=== PATIENT | male | born 1965 | race Caucasian/White ===

== ENCOUNTER 2017-01-30 14:03 | Emergency (ER) | payer OTHER ==
[~2017-01-30] VITALS: Ht 182.9 cm; Wt 79.5 kg
[~2017-01-30 14:03] MED LIST: CALC-766 PO; CETI10CA PO; GLUC100016 PO; MULT-56 PO
[2017-01-30 14:20] VITALS: PULSE 72; RESP 20; O2SAT 98
[2017-01-30 14:31] VITALS: BP 129/87; PULSE 71; RESP 16; O2SAT 99
--- NOTE | 2017-01-30 14:44 | ED.REPORT ---
HPI-Extremity Problem Lower Date of Service Jan 30, 2017 ED Provider: Brent Noland DO Pt is a 52 year old male presenting to the ED complaining of right knee pain onset just prior to arrival when his dog ran into him from behind and tripped him. He denies any other injury or other symptoms at this time. Nursing Notes Stated Complaint: RT KNEE INJURY/POSS DISLOCATION Chief Complaint: Extremity Trauma Nursing Notes Reviewed: Yes Allergies: Coded Allergies: No Known Allergies (Unverified , 01/30/17) Scheduled Calcium Carbonate (Calcium) 500 Mg Tab.chew 500 MG PO DAILY Cetirizine HCl (Zyrtec) 10 Mg Capsule 10 MG PO HS Glucosamine Sulfate 2Kcl (Glucosamine) 1,000 Mg Tablet 1,000 MG PO DAILY Miscellaneous Medications Multivitamin (Daily Vitamin) 1 Each Tablet 1 EACH PO General Time Seen by MD: 14:43 Chief Complaint Knee injury right Hx Obtained From: Patient Arrived By: Wheelchair Onset Occurred: Just prior to arrival Symptom Duration: Since onset Caused by: Accidental, Fall on ground Location: : Knee right Quality: Painful Severity: Current: Moderate Severity: Maximum: Moderate Recent Healthcare: No recent doctor visit, No recent hospitalization Similar Sx Previous: No Risk-Extremity Prob Lower Well's Criteria for DVT Well's DVT Score: 0 pts (low risk 5%) Past Medical History Past Medical History denies Past Surgical History Eye surgery at 9 years old Smoking History Never Smoker Social History Alcohol Use: "Social" Ambulatory Status Independent Review of Systems Musculoskeletal: Reports: Joint pain, Joint swelling Complete sys rev & neg: except as marked. Respiratory: Denies: Shortness of breath GI: Denies: Vomiting Physical Exam Initial Vital Signs Vital Signs (First) Date Time Temp Pulse Resp B/P Pulse Ox O2 Delivery O2 Flow Rate FiO2 01/30/17 14:31 37.1 71 16 129/87 99 Room Air Initial VS: Reviewed General/Constitutional: Well-developed, Well-nourished Head / Eyes: Atraumatic, Normocephalic, PERRL ENT: Mucous membranes moist, Conjunctiva normal, No scleral icterus Neck: Full range of motion Respiratory: No respiratory distress Abdomen / GI: No distention Skin: Warm, Dry, No cyanosis Neurologic: Alert, Oriented, Nonfocal Psychiatric: Mood/affect normal, Behavior normal, Normal thought content Lower Extremity / Pelvis / MS: Neurologic intact, Vascular intact Extensor mechanism absent. High riding patella. Boggy feeling in joint space of right knee. Palpable 2+ posterior tibial pulse bilaterally, 1+ dorsalis pedis pulses bilaterally Interpretation & Diagnostics Interpretation & Diagnostics: CT ANGIO RIGHT LOWER EXTREMITY: IMPRESSION: 1. No evidence of vascular injury. 2. Suboptimal opacification of the anterior tibial artery and peroneal arteries secondary to contrast bolus timing. Posterior tibial artery is patent distal catheter. Dictated by: Annalise Martin M.D. on 01/30/2017 at 17:01 Lab Results Interpretation Result Diagram: 01/30/17 1530 01/30/17 1530 Test 01/30/17 15:30 White Blood Count 8.4th/mm3 (3.8-10.1) Red Blood Count 4.63mil/mm3 (4.40-5.80) Hemoglobin 14.7g/dL (13.8-17.2) Hematocrit 42.7% (41.0-50.0) Mean Corpuscular Volume 92.2fL (81-100) Mean Corpuscular Hemoglobin 31.7pg (27.0-35.0) Mean Corpuscular Hemoglobin Concent 34.4% (32.0-37.0) Red Cell Distribution Width 12.9% (12.3-15.4) Platelet Count 231bil/L (150-400) Sodium Level 137mEq/L (134-144) Potassium Level 4.3mEq/L (3.5-5.2) Chloride Level 100mEq/L (97-108) Carbon Dioxide Level 24mmol/L (18-29) Blood Urea Nitrogen 12mg/dL (6-24) Creatinine 0.56mg/dL (0.76-1.27) Estimat Glomerular Filtration Rate 162mL/min (>59) Glucose Level 97mg/dL (60-99) Calcium Level 10.0mg/dL (8.5-10.1) X-Ray Interpretation Xray Interpretation: IMPRESSION: No acute fracture. No osseous lesion. If clinical suspicion and/or symptoms persist, further assessment with repeat plainfilms, or advanced imaging (e.g., CT, MRI, or bone scan) may be helpful for further assessment. Dictated by: Annalise Martin M.D. on 01/30/2017 at 15:26 X-Ray Ordered: Knee right Interpretation / Wet Read by: Interpret - Radiologist Re-Eval/Medical Decision Med Decision/Clinical Course Physical exam findings of the right knee are highly suspicious for a patellar tendon rupture, his extensor mechanism is not functional, he has strong palpable bilateral posterior tibial pulses however has diminished dorsalis pedis pulses bilaterally with symmetrically cold extremities and symmetric capillary refill. However, given the injury was severe enough to cause a patellar tendon rupture and suspicion by his spouse and the patient at the malalignment of the knee at the time of injury, there is moderate concern for a complete knee dislocation that was appropriately reduced initially after the incident (the patient's spouse is a physician). For this reason an angiogram of the leg was performed to exclude vascular injury. No noted vascular injury is seen on CAT scan. Patient declines pain medication, knee immobilizer and crutches are given. Patient will follow up with orthopedics. Return and follow-up precautions given. Re-Evaluation/Progress #1: Time of Eval: 14:57 Patient Status: Condition improved Re-Evaluation/Progress Note: Discussed plan for x ray and consultation with ortho. Re-Evaluation/Progress #2: Time of Eval: 15:07 Patient Status: Condition improved Re-Evaluation/Progress Note: The pt's pulse is intact, but the knee may have been fully dislocated. Discussed need for angio of leg. Re-Evaluation/Progress #3: Time of Eval: 17:14 Patient Status: Condition improved Re-Evaluation/Progress Note: Discussed CT results and plan for discharge. Pt understands and agrees. Consultation : Referral / Consult Name: Osmin Guerrero MD Consulted With: Orthopedic Call Returned at: 15:12 Garment Turner: Agrees with plan Note: Get the angio and put the knee in an immobilizer. Counseled Regarding: Diagnosis, Lab results, Need for follow-up, When/why to return to ED Discharge & Departure Impression: Primary Impression: Patellar tendon rupture Encounter type: initial encounter Laterality: right Qualified Code: S86.811A - Strain of other muscle(s) and tendon(s) at lower leg level, right leg , initial encounter Disposition: Home Discharge Condition All VS Reviewed: Yes Condition: Improved Additional Instructions: Your scans today did not show signs of a vascular injury. Use the knee immobilizer and crutches as planned. Take naproxen twice daily. Return to the ER if you develop signs of a vascular injury, such as pain all the way down your leg or other concerns. Follow up with an orthopedic surgeon in the next week. Referrals: Jonathan Bacon MD (PCP) Osmin Guerrero MD Attestation Portions of this note were transcribed by Ame Pastor. I, Dr. Noland personally performed the history, physical exam and medical decision-making; I reviewed and confirmed the accuracy of the information in the transcribed note. Signed by: Anai Merritt, 01/30/2017 at 1726. copies to: Jonathan Bacon MD; Osmin Guerrero MD, Timothy S DO Jan 30, 2017 14:44 AME PASTOR Jan 30, 2017 14:51
--- NOTE | 2017-01-30 15:27 | DRSVH ---
PROCEDURE: X-RAY RIGHT KNEE, THREE VIEWS ([id number]) INDICATIONS: RIGHT KNEE INJURY TECHNIQUE: 3 views of the knee were acquired. COMPARISON: None. FINDINGS: Bones: No fractures or dislocations. No suspicious bony lesions. Soft tissues: No joint effusion. No suspicious soft tissue calcifications. IMPRESSION: No acute fracture. No osseous lesion. If clinical suspicion and/or symptoms persist, fur ther assessment with repeat plainfilms, or advanced imaging (e.g., CT, MRI, or bone scan) may be help ful for further assessment. Dictated by: Annalise Martin M.D. on 01/30/2017 at 15:26 Approved by: Annalise Martin M.D. on 01/30/2017 at 15:26
[2017-01-30 15:45] LABS: Mean Corpuscular Hemoglobin 31.7 pg (27.0-35.0); Mean Corpuscular Volume 92.2 fL (81-100)
--- NOTE | 2017-01-30 17:06 | DRSVH ---
PROCEDURE: CT ANGIO LOWER EXTREMITY, RIGHT INDICATIONS: possible knee dislocation eval vasculature TECHNIQUE: After the administration of intravenous contrast, 2 and 5 mm sections acquired of the entire right lo wer extremity, with optional delayed image acquisition from the knees to the feet. 3-dimensional max imum intensity projection (MIP) coronal and sagittal reformats, and/or 3-dimensional volume rendering reformatting was then performed. For radiation dose reduction, the following was used: automated exp osure control, adjustment of mA and/or kV according to patient size. COMPARISON: None. FINDINGS: Image quality: Limited by contrast bolus timing There is mild diffuse plaque and mild stenosis involving the distal superficial femoral artery, as we ll as the above-knee popliteal artery. The anterior tibial artery is patent proximally. Tibial perone al trunk is patent. Peroneal artery is patent proximally. Posterior tibial artery is not well-visuali zed, but is patent to the distal calf. No fracture. Small knee joint effusion. IMPRESSION: 1. No evidence of vascular injury. 2. Suboptimal opacification of the anterior tibial artery and peroneal arteries secondary to contrast bolus timing. Posterior tibial artery is patent distal catheter. Dictated by: Annalise Martin M.D. on 01/30/2017 at 17:01 Approved by: Annalise Martin M.D. on 01/30/2017 at 17:04
[2017-01-30 17:35] VITALS: BP 123/67; PULSE 78; RESP 17; O2SAT 98
== END 2017-01-30 17:36 | disposition home or self-care (01) ==
LOC: SED 14:03
DX: S86.811A Strain of other muscle(s) and tendon(s) at lower leg level, right leg, initial encounter (principal); W01.0XXA Fall on same level from slipping, tripping and stumbling without subsequent striking against object, initial encounter; Y93.01 Activity, walking, marching and hiking; Y99.8 Other external cause status; Y92.9 Unspecified place or not applicable
CPT/HCPCS: 29505; 36415; 73562; 73706; 80048; 85027; 99284; Q9967